=== PATIENT | female | born 1945 | race Caucasian/White ===

== ENCOUNTER 2023-03-16 10:08 | Day surgery (SDC) | payer MEDICARE, OTHER ==
[2023-03-09 16:26] LABS: BASOPHILS # (AUTO) 0.1 X10'3 (0-0.2); BASOPHILS % (AUTO) 0.7 % (0-1); EOSINOPHILS # (AUTO) 0.4 X10'3 (0-0.9); EOSINOPHILS % (AUTO) 4.7 % (0-6); LYMPHOCYTES # (AUTO) 1.2 X10'3 (1.1-4.8); LYMPHOCYTES % (AUTO) 15.8 % (21-51); MEAN CORPUSCULAR HGB CONC 32.3 g/dL (33.0-36.5); MEAN CORPUSCULAR VOLUME 83.6 FL (78-98); MEAN PLATELET VOLUME 7.4 FL (7.4-10.4); MONOCYTES # (AUTO) 0.5 X10'3 (0-0.9); MONOCYTES % (AUTO) 6.2 % (2-12); NEUTROPHILS # (AUTO) 5.5 X10'3 (1.8-7.7); NEUTROPHILS % (AUTO) 72.6 % (42-75); PRE OP HEMATOCRIT 36.3 % (35.0-45.0); PRE OP HEMOGLOBIN 11.7 g/dL (12.0-16.0); PRE OP PLATELET COUNT 255 X10'3 (140-440); RED BLOOD COUNT 4.35 X10'6 (4.20-5.60); RED CELL DISTRIBUTION WIDTH 18.3 % (11.5-14.5)
[2023-03-09 16:39] LABS: ALBUMIN 3.5 G/DL (3.4-5.0); ALBUMIN/GLOBULIN RATIO 1.2 (1.1-1.5); ALKALINE PHOSPHATASE 89 IU/L (46-116); BLOOD UREA NITROGEN 27 MG/DL (7-18); CALCIUM 8.9 MG/DL (8.5-10.1); CHLORIDE 105 MMOL/L (99-107); PRE OP ALT 17 U/L (30-65); PRE OP ANION GAP 9 (8-16); PRE OP AST 19 U/L (10-37); PRE OP BILIRUB, TOTAL 0.4 MG/DL (0.0-1.0); PRE OP GLUCOSE 110 MG/DL (70-104); PRE OP POTASSIUM 4.1 MMOL/L (3.4-5.1); PRE OP SODIUM 142 MMOL/L (135-145); TOTAL CARBON DIOXIDE 27.7 MMOL/L (24-32); TOTAL PROTEIN 6.5 G/DL (6.4-8.2); eGFR > 90 ML/MIN
[~2023-03-16] VITALS: Ht 157.5 cm; Wt 62.9 kg
[2023-03-16] VITALS (12 sets, daily range): BP systolic 109–140; BP diastolic 59–81
[~2023-03-16 10:08] MED LIST: AMLO2.5T2 PO; BENA10TA74 PO; CALC-336 PO; CHOL200013 PO; DORZ10DR26 OP; FENT1PAT12 TOP; GABA-530 PO; HYDR-3972 PO; LEVO75TA7 PO; MAGN250C PO; PANT-47 PO; PRE1T PO; SERT-433 PO; TIMO5DRO44 OP; [UNRECOGNIZED DRUG - OTHER]; cefazolin 2gm/D5W 100mL 100 ML IV ONE; famotidine 20mg tablet PO ONE; methylPREDNISolone sod succ 125mg/2ml vial IV ONE; ringers solution, lacted 1,000 ML IV SCH
[2023-03-16] MEDS ORDERED: LIDOcaine 1%/PF 5ML 10 MG/ML VIAL ONE (13:05)
[2023-03-16] MEDS ORDERED: propofol inj 20 ML IV ONE (13:05)
[2023-03-16] MEDS ORDERED: fentaNYL/PF 50MCG/1 ML 2ML syringe ONE (13:42)
[2023-03-16] MEDS ORDERED: meperidine/PF 50mg/ml syringe ONE (13:43)
[2023-03-16] MEDS ORDERED: midazolam 1 mg/ML 2ml injection ONE ×2 (13:43→15:41)
[2023-03-16] MEDS ORDERED: LIDOcaine 2% jelly 6ml syringe ***for topical use only ONE (13:51)
[2023-03-16] MEDS ORDERED: labetalol 20mg/4ml (5mg/ml) syringe IV ONE (14:39)
[2023-03-16] MEDS ORDERED: acetaminophen 1,000mg/100ml IV 100 ML IV ONE (14:40)
[2023-03-16] MEDS ORDERED: neostigmine methylsulfate 1 MG/ML 10ml vial ONE (14:49)
[2023-03-16] MEDS ORDERED: glycopyrrolate 0.2mg/ml inj ONE (14:49)
[2023-03-16] MEDS ORDERED: BUPIVAcaine/PF 2.5 mg/ml (0.25%) 30ml vial ONE (15:12)
[2023-03-16] MEDS ORDERED: LIDOcaine 1% 30ml preserv. free vial ONE (15:12)
[2023-03-16] MEDS ORDERED: BUPIVAcaine/PF 2.5 mg/ml (0.25%) 30ml vial IJ ONE (15:38)
[2023-03-16] MEDS ORDERED: LIDOcaine 1% 30ml preserv. free vial IJ ONE (15:38)
[2023-03-16] MEDS ORDERED: fentaNYL /PF 50mcg/ml 5ml ampule ONE (15:41)
[2023-03-16] MEDS ORDERED: sugammadex 200mg/2ml injection IV ONE (16:29)
--- NOTE | 2023-03-16 16:44 | NUR ---
Received from OR via HOSPITAL BED , accompanied by Anesthesiologist DR MARSHALL and report given by Anesthesiolgist. PT PRESENTS WITH PIV 20G RIGHT HAND, SPO2 100% 6L MASK, LR RUNNING AT 100MLS/HR, VSS. DR MCCLURE TALKING WITH PT REGARDING UNABLE TO DUE SURGERY DUE TO PT TELLING THE NURSE THAT SHE COLD NOT LAY FLAT OR SHE WOULD BE PARALYZED. CLARIFICATION NEEDED FOR DR MCCLURE TO BE ABLE TO DUE THE SURGERY. Addendum: 03/16/23 at 1701 by Riana Coleman RN, RN Amended: Links added.
--- NOTE | 2023-03-16 16:54 | NUR ---
NOTE ON THE FRONT OF THE CHART READS "PLEASE USE EXTREME CAUTION WITH POSITIONING, PT UNABLE TO LAY FLAT NEEDS KNEES SUPPORTED. FAILED FUSION & SEVERE DEGENERATIVE DISC DISEASE".
--- NOTE | 2023-03-16 18:14 | NUR ---
DC HOME: ALL DISCHARGE CRITERIA HAS BEEN MET. VSS, PAIN AT A TOLERABLE LEVEL, VOIDING AND ABLE TO SAFELY AMBULATE AND TRANSFER SELF. IV TAKEN OUT WITHOUT ANY COMPLICATIONS. ALL DISCHARGE INSTRUCTIONS COVERED WITH PATIENT AND ALL QUESTIONS ANSWERED. PATIENT TAKEN OUT VIA WHEELCHAIR TO PERSONAL VEHICLE WHERE FAMILY/FRIEND DROVE PATIENT HOME. SURGERY WILL NEED TO BE RESCHEDULED. DR MCCLURE WILL CALL PT TOMORROW AFTERNOON TO DISCUSS SURGICAL OPTIONS AND TIMONG. TO PROCEED WITH SURGERY PT WILL NEED TO BE LAYING COMPLETELY FLAT AFTER GENERAL ANESTHESIA MOREIRA STARTED. Addendum: 03/16/23 at 1926 by Riana Coleman RN, RN Amended: Links added.
== END 2023-03-16 18:14 | disposition home or self-care (01) ==
LOC: PAS 10:08
PROVIDERS: ATTEND Surgery
DX: K44.9 Diaphragmatic hernia without obstruction or gangrene (principal); Z53.8 Procedure and treatment not carried out for other reasons; I10 Essential (primary) hypertension; H40.9 Unspecified glaucoma; K21.9 Gastro-esophageal reflux disease without esophagitis; G89.29 Other chronic pain; E03.9 Hypothyroidism, unspecified; M46.20 Osteomyelitis of vertebra, site unspecified; F32.A Depression, unspecified; F41.9 Anxiety disorder, unspecified; Z90.710 Acquired absence of both cervix and uterus; Z98.890 Other specified postprocedural states; Z98.1 Arthrodesis status; Z91.040 Latex allergy status; Z88.2 Allergy status to sulfonamides; Z79.899 Other long term (current) drug therapy; Z72.89 Other problems related to lifestyle; Z79.52 Long term (current) use of systemic steroids; Z80.0 Family history of malignant neoplasm of digestive organs; Z82.49 Family history of ischemic heart disease and other diseases of the circulatory system; Z82.61 Family history of arthritis
CPT/HCPCS: 36415; 43281; 80053; 82948; 85025; 87081; 93005; J0131; J0690; J2175; J2250; J2704; J2710; J3010; J3490; J7030; J7120; Z7506; Z7508; Z7512; A4615; A4618

== ENCOUNTER 2023-03-20 12:55 | Inpatient (IN) | payer MEDICARE, OTHER ==
[~2023-03-20] VITALS: Ht 154.9 cm; Wt 81.6 kg
[~2023-03-20 12:55] MED LIST changes: -cefazolin 2gm/D5W 100mL 100 ML IV ONE; -famotidine 20mg tablet PO ONE; -methylPREDNISolone sod succ 125mg/2ml vial IV ONE; -ringers solution, lacted 1,000 ML IV SCH
[2023-03-20 13:38] LABS: BASOPHILS # (AUTO) 0.1 X10'3 (0-0.2); BASOPHILS % (AUTO) 0.5 % (0-1); EOSINOPHILS # (AUTO) 0.1 X10'3 (0-0.9); EOSINOPHILS % (AUTO) 0.6 % (0-6); HEMOGLOBIN 12.2 g/dl (12.0-16.0); LYMPHOCYTES # (AUTO) 1.2 X10'3 (1.1-4.8); LYMPHOCYTES % (AUTO) 8.9 % (21-51); MEAN CORPUSCULAR HEMOGLOBIN 26.9 PG (27.0-31.0); MEAN PLATELET VOLUME 7.3 FL (7.4-10.4); MONOCYTES # (AUTO) 0.7 X10'3 (0-0.9); MONOCYTES % (AUTO) 5.4 % (2-12); NEUTROPHILS # (AUTO) 11.7 X10'3 (1.8-7.7); NEUTROPHILS % (AUTO) 84.6 % (42-75); PLATELET COUNT 252 X10'3 (140-440); RED BLOOD COUNT 4.53 X10'6 (4.20-5.60); RED CELL DISTRIBUTION WIDTH 18.2 % (11.5-14.5); WHITE BLOOD COUNT 13.8 X10'3 (4.5-11.0)
[2023-03-20 13:52] LABS: ALANINE AMINOTRANSFERASE 17 U/L (12-78); ALBUMIN 3.6 G/DL (3.4-5.0); ALBUMIN/GLOBULIN RATIO 1.1 (1.1-1.5); ALKALINE PHOSPHATASE 89 IU/L (46-116); ANION GAP 8 (8-16); ASPARTATE AMINO TRANSFERASE 20 U/L (10-37); BLOOD UREA NITROGEN 26 MG/DL (7-18); BUN/CREATININE RATIO 42.6 (10.0-20.0); CHLORIDE 102 MMOL/L (99-107); CREATININE 0.61 MG/DL (0.40-0.90); GLUCOSE 114 MG/DL (70-104); LIPASE < 50 U/L (73-393); POTASSIUM 3.8 MMOL/L (3.5-5.1); SODIUM 139 MMOL/L (135-145); TOTAL PROTEIN 6.8 G/DL (6.4-8.2); eGFR > 90 ML/MIN
[2023-03-20 13:58] LABS: CLARITY,URINE SLIGHTLY CLOUDY (Clear); COLOR,URINE YELLOW (Yellow); GLUCOSE, URINE NEGATIVE (Neg); KETONES,URINE TRACE mg/dl (Neg); LEUKOCYTE ESTERASE ,URINE NEGATIVE (Neg); NITRITES, URINE NEGATIVE (Neg); OCCULT BLOOD,URINE NEGATIVE (Neg); PROTEIN,URINE NEGATIVE (Neg)
[2023-03-20 14:07] LABS: UA COLLECTION TYPE CLN CATCH MIDSTREAM
[2023-03-20 14:09] LABS: BACTERIA,URINE FEW /HPF (Neg); RBC,URINE NONE SEEN /HPF (0-2); SQUAMOUS EPITHELIAL CELL,UR MANY /LPF (FEW); TRANSITIONAL EPI CELLS,URINE FEW /HPF; WBC,URINE 0-4 /HPF (0-4)
[2023-03-20] MEDS ORDERED: normal saline 1000ml 1,000 ML IV ONE (14:50)
[2023-03-20] MEDS ORDERED: iohexol 350MG/ML 100ml bottle IV ONE (15:01)
[2023-03-20 18:11] LABS: BASOPHILS % (AUTO) 0.3 % (0-1); EOSINOPHILS # (AUTO) 0.1 X10'3 (0-0.9); EOSINOPHILS % (AUTO) 0.7 % (0-6); HEMATOCRIT 31.2 % (35.0-45.0); HEMOGLOBIN 10.1 g/dl (12.0-16.0); LYMPHOCYTES # (AUTO) 1.1 X10'3 (1.1-4.8); LYMPHOCYTES % (AUTO) 8.3 % (21-51); MEAN CORPUSCULAR HEMOGLOBIN 27.1 PG (27.0-31.0); MEAN CORPUSCULAR HGB CONC 32.5 g/dL (33.0-36.5); MEAN CORPUSCULAR VOLUME 83.3 FL (78-98); MEAN PLATELET VOLUME 7.5 FL (7.4-10.4); MONOCYTES # (AUTO) 0.6 X10'3 (0-0.9); MONOCYTES % (AUTO) 4.6 % (2-12); NEUTROPHILS # (AUTO) 11.2 X10'3 (1.8-7.7); NEUTROPHILS % (AUTO) 86.1 % (42-75); PLATELET COUNT 210 X10'3 (140-440); RED BLOOD COUNT 3.75 X10'6 (4.20-5.60); RED CELL DISTRIBUTION WIDTH 17.7 % (11.5-14.5)
[2023-03-20] MEDS ORDERED: piperacillin/tazo 3.375gm/50ml 50 ML IV ONE (18:30)
--- NOTE | 2023-03-20 18:38 | NUR ---
assumed care form van freeman
[2023-03-20] MEDS ORDERED: ondansetron/PF 4mg/2ml inj IV ONE (18:40)
[2023-03-20] MEDS ORDERED: morphine 4 MG/ML inj SYRINge IV ONE (18:40)
[2023-03-20 19:14] LABS: APTT 29 SECONDS (22-32)
[2023-03-20] MEDS ORDERED: DORZ10DR32 EACHEYE (20:12)
[2023-03-20] MEDS ORDERED: TIMO5DRO44 EACHEYE (20:12)
[2023-03-20] MEDS ORDERED: CYAN500T53 (20:12)
[2023-03-20] MEDS ORDERED: acetaminophen 325mg tablet PO PRN ×2 (20:15)
[2023-03-20] MEDS ORDERED: HYDROcodone/acetaminophen 10/325mg tab PO PRN (20:15)
[2023-03-20] MEDS ORDERED: diphenhydrAMINE 50 mg/ml inj IV PRN (20:15)
[2023-03-20] MEDS ORDERED: morphine 2 MG/ML inj. syringe IV PRN (20:15)
[2023-03-20] MEDS ORDERED: acetaminophen 650mg rectal suppository RC PRN (20:15)
[2023-03-20] MEDS ORDERED: mag hydrox/Alum hydrox/simeth 30ml oral suspension PO PRN (20:15)
[2023-03-20] MEDS ORDERED: diphenhydrAMINE 25mg capsule PO PRN (20:15)
[2023-03-20] MEDS ORDERED: bisacodyl 10mg suppository rectal RC PRN (20:15)
[2023-03-20] MEDS ORDERED: HYDROcodone/acetaminophen 5mg/325mg tablet PO PRN (20:15)
[2023-03-20] MEDS ORDERED: ondansetron 4mg rapidly disintigrating tab PO PRN (20:15)
[2023-03-20] MEDS ORDERED: magnesium hydroxide 30ml (MOM) UD suspension PO PRN (20:15)
[2023-03-20] MEDS ORDERED: tranexamic acid inj. 1,000 MG in normal saline 100ml IV soln 90 ML IV ONE ×2 (20:20→20:45)
[2023-03-20 20:46] LABS: HEMOGLOBIN A1C 6.2 % (4.5-6.2)
[2023-03-20 20:59] LABS: CREATINE KINASE 33 U/L (26-192); PHOSPHORUS 3.7 MG/DL (2.3-4.5)
[2023-03-20] MEDS ORDERED: pantoprazole 40MG/NS 100ML BAG 100 ML IV SCH ×2 (21:00)
[2023-03-20] MEDS ORDERED: temazepam 15mg capsule PO PRN (21:00)
[2023-03-20] MEDS: diatr meglu/diatrizoate 30ml oral sol.-(3 dose) bottle PO SCH (21:08)
[2023-03-20] MEDS: pantoprazole 40MG/NS 100ML BAG 100 ML IV SCH (21:08)
[2023-03-20] MEDS: normal saline 1000ml 1,000 ML IV SCH (21:10)
[2023-03-20] MEDS: ondansetron/PF 4mg/2ml inj IV PRN (22:33)
[2023-03-20] MEDS: morphine 2 MG/ML inj. syringe IV PRN (22:33)
[2023-03-20 23:40] VITALS: BP 99/52
[2023-03-21] MEDS: pantoprazole 40MG/NS 100ML BAG 100 ML IV SCH ×4 (01:05→15:57)
[2023-03-21] MEDS: normal saline 1000ml 1,000 ML IV SCH ×2 (01:05→12:17)
[2023-03-21 06:00] VITALS: BP 85/49
[2023-03-21 06:07] LABS: BASOPHILS % (AUTO) 0.1 % (0-1); EOSINOPHILS # (AUTO) 0.2 X10'3 (0-0.9); EOSINOPHILS % (AUTO) 1.4 % (0-6); HEMATOCRIT 32.6 % (35.0-45.0); HEMOGLOBIN 10.3 g/dl (12.0-16.0); LYMPHOCYTES # (AUTO) 0.8 X10'3 (1.1-4.8); LYMPHOCYTES % (AUTO) 5.2 % (21-51); MEAN CORPUSCULAR HEMOGLOBIN 26.6 PG (27.0-31.0); MEAN CORPUSCULAR HGB CONC 31.5 g/dL (33.0-36.5); MEAN CORPUSCULAR VOLUME 84.6 FL (78-98); MEAN PLATELET VOLUME 7.6 FL (7.4-10.4); MONOCYTES # (AUTO) 0.9 X10'3 (0-0.9); MONOCYTES % (AUTO) 5.8 % (2-12); NEUTROPHILS # (AUTO) 13.5 X10'3 (1.8-7.7); NEUTROPHILS % (AUTO) 87.5 % (42-75); PLATELET COUNT 195 X10'3 (140-440); RED BLOOD COUNT 3.86 X10'6 (4.20-5.60); WHITE BLOOD COUNT 15.4 X10'3 (4.5-11.0)
[2023-03-21 06:16] LABS: ALANINE AMINOTRANSFERASE 11 U/L (12-78); ALBUMIN 2.7 G/DL (3.4-5.0); ALKALINE PHOSPHATASE 71 IU/L (46-116); ANION GAP 9 (8-16); ASPARTATE AMINO TRANSFERASE 19 U/L (10-37); BILIRUBIN,TOTAL 0.9 MG/DL (0.1-1.0); BLOOD UREA NITROGEN 22 MG/DL (7-18); BUN/CREATININE RATIO 29.7 (10.0-20.0); CALCIUM 8.1 MG/DL (8.5-10.1); CHLORIDE 105 MMOL/L (99-107); CHOL/HDL RATIO 2.3 (0.00-4.99); CHOLESTEROL 133 MG/DL (0-200); CREATININE 0.74 MG/DL (0.40-0.90); GLUCOSE 76 MG/DL (70-104); HDL CHOLESTEROL 59 MG/DL (35-60); LDL CHOLESTEROL 66 MG/DL (50-100); POTASSIUM 3.3 MMOL/L (3.5-5.1); SODIUM 138 MMOL/L (135-145); TOTAL CARBON DIOXIDE 23.7 MMOL/L (24-32); TOTAL PROTEIN 5.4 G/DL (6.4-8.2); TRIGLYCERIDES 37 MG/DL (20-135); eGFR 76 ML/MIN
--- NOTE | 2023-03-21 06:53 | NUR ---
Patient in room PCU 3026. I have received report from Lyn RENTERIA and had the opportunity to ask questions and assume patient care.
[2023-03-21] MEDS: diatr meglu/diatrizoate 30ml oral sol.-(3 dose) bottle PO SCH ×2 (07:35→09:37)
[2023-03-21] MEDS: morphine 2 MG/ML inj. syringe IV PRN (07:47)
[2023-03-21] MEDS ORDERED: piperacillin/tazo 4.5gm/100ml 100 ML IV SCH (08:00)
[2023-03-21] MEDS ORDERED: docusate sod 100mg capsule PO SCH (08:00)
[2023-03-21] MEDS ORDERED: magnesium 2GM in 50ml NS 50 ML IV PRN (08:00)
[2023-03-21] MEDS ORDERED: potassium Cl 20 mEq SR tablet PO PRN ×2 (08:00)
[2023-03-21] MEDS ORDERED: magnesium Cl slow-release 64mg tablet PO PRN (08:00)
[2023-03-21] MEDS ORDERED: magnesium 4gm in 100ml NS 100 ML IV PRN (08:00)
[2023-03-21 10:00] VITALS: BP 93/36
[2023-03-21] MEDS ORDERED: FENTANYL TOP SCH (11:35)
[2023-03-21] MEDS ORDERED: methylPREDNISolone sod succ/PF 40mg inj. IV ONE (11:40)
[2023-03-21] MEDS ORDERED: PEG 3350/Na sulf,bicarb,Cl/KCl oral sol 4 liter bottle PO ONE (12:10)
[2023-03-21] MEDS: potassium Cl 40MEQ/1/2NS 520ml 520 ML IV PRN (12:20)
--- NOTE | 2023-03-21 14:52 | NUR ---
patient was seen by DR Leung and Miranda Summers . Dr Leung sated that he wants an evaluation of current CT by radiologist. Bowel prep on hold Patient ambulated with PT see note. B/P 93/36. 105/44.
[2023-03-21 15:54] VITALS: BP 93/36
[2023-03-21] MEDS ORDERED: dextrose 50%-water 50ml dispensing syringe IV ONE (16:15)
--- NOTE | 2023-03-21 16:53 | NUR ---
patient prepared for surgery fentanyl patch removed and wasted with kenna RENTERIA
--- NOTE | 2023-03-21 18:21 | NUR ---
patient medicated for pain with good result. Ambulated with PT see note with regards O2 sat was reported that patient dropped in the 70"s when ambulating with Sarah from PT. Report given to Nickie RENTERIA
--- NOTE | 2023-03-21 18:39 | NUR ---
Report given to Lyn RENTERIA
[2023-03-21 19:19] VITALS: BP 128/61
[2023-03-21] MEDS: dorzolamide 2% ophthalmic drops 10ml EACHEYE SCH (20:00)
--- NOTE | 2023-03-21 21:00 | NUR ---
Family came up to take all Pt's belongings with them.
[2023-03-21] MEDS ORDERED: midazolam 1 mg/ML 2ml injection ONE (22:25)
[2023-03-21] MEDS ORDERED: sevoflurane 250ml liquid IH ONE (22:31)
[2023-03-21] MEDS ORDERED: rocuronium 10mg/ml inj IV ONE ×2 (22:31→23:26)
--- NOTE | 2023-03-21 22:47 | NUR ---
Pt went to OR at 1915, At 2245 PCU charge nurse informed that Pt is going to ICU after procedure.
[2023-03-21] MEDS ORDERED: LIDOcaine 1% 30ml preserv. free vial ONE (23:18)
[2023-03-21] MEDS ORDERED: BUPIVAcaine/PF 2.5 mg/ml (0.25%) 30ml vial ONE (23:18)
[2023-03-21] MEDS ORDERED: midazolam 1 mg/ML 2ml injection IV PRN (23:20)
[2023-03-21] MEDS ORDERED: propofol 1000mg/100ml bottle 100 ML IV SCH (23:20)
[2023-03-21] MEDS ORDERED: fentaNYL /PF 50mcg/ml 5ml ampule ONE (23:25)
[2023-03-21] MEDS ORDERED: 0.9 % SODIUM CHLORIDE 10 ML VIAL ONE (23:26)
[2023-03-21] MEDS ORDERED: ceFOXitin 1000 MG inj ONE ×2 (23:26)
[2023-03-21] MEDS ORDERED: LIDOcaine 1% (10mg/ml) 2ml vial ONE (23:26)
[2023-03-21] MEDS ORDERED: ePHEDrine 50MG/ML INJ. ONE (23:26)
[2023-03-21] MEDS ORDERED: dexamethasone sod phosphate 4mg/ml inj. ONE (23:26)
[2023-03-21] MEDS ORDERED: LIDOcaine 2% (20mg/ml) 5ml vial ONE (23:26)
[2023-03-21] MEDS ORDERED: ondansetron/PF 4mg/2ml inj ONE (23:26)
[2023-03-21] MEDS ORDERED: propofol inj 20 ML IV ONE (23:26)
[2023-03-22] VITALS (29 sets, daily range): BP systolic 119–180; BP diastolic 50–87
[2023-03-22] MEDS ORDERED: BUPIVACAINE liposomal/PF 13.3 MG/ML vial IM ONE (00:16)
[2023-03-22] MEDS ORDERED: BUPIVAcaine/PF 2.5 mg/ml (0.25%) 30ml vial ONE (00:17)
[2023-03-22] MEDS: pantoprazole 40MG/NS 100ML BAG 100 ML IV SCH ×4 (01:00→12:32)
[2023-03-22] MEDS ORDERED: morphine 10mg/ml inj. ONE (01:08)
[2023-03-22] MEDS ORDERED: naloxone 0.4 mg/ml inj IV PRN (01:15)
[2023-03-22] MEDS: fentaNYL/PF 50MCG/1 ML 2ML syringe IV PRN ×4 (01:33→01:51)
--- NOTE | 2023-03-22 01:35 | NUR ---
Received from OR via , accompanied by Anesthesiologist and report given by Anesthesiolgist. PATIENT SEDATED RT HERE, XRAY PAGED, HTN STABLE V/S, SEE RT NOTES FOR VENT SETTING, ET TUBE 21CM TEETH, 20G RUE 22G LUE CL RIGHT IJ ART LINE RUE, ISLAND DRESSING CDI COLOSTOMY WITH PINK STOMA CDI, ADITYA DRAIN SCANT OUT PUT TO ABDOMEN CDI DRESSING, F/C DRAINING CLEAR YELLOW URINE. SCD ON. DIPROVAN FOR SEDATION. PAIN MEDS TO BE GIVEN FOR PAIN AND HTN SEE EMAR.
--- NOTE | 2023-03-22 02:05 | NUR ---
PATIENT RECOVERED IN ICU, CONDITION UNCHANGED EXCEPT B/P TRENDING DOWN, MEDS GIVEN FOR PAIN SEE EMAR, MILD SHADOWING TO ISLAND DRESSING TO ABDOMEN OTHERWISE CDI ADITYA SCANT OUT PUT COLOSTOMY CDI PINK STOMA, F/C DRAINING CLEAR YELLOW URINE. REPORT GIVEN TO FULL FASHIONED GARMENT KNITTER WHO HAS TAKEN OVER PATIENT CARE.
[2023-03-22 02:06] LABS: ABG BASE EXCESS -8.5 mmol/L (-2.0-2.0); ABG HCO3 16.2 mmol/L (22.0-26.0); ABG OXYGEN SATURATION 99.6 % (94-97); ABG PCO2 (T) 29.9 mmHg (32.0-45.0); ABG PO2 (T) 316.8 mmHg (75.0-100.0); FCOHb 0.5 % (0.0-3.9); FMetHb 0.5 % (0.0-1.5); FO2Hb 98.6 % (94-97); PATIENT TEMPERATURE 35.9; PEEP 5 cm H2O; RESPIRATORY RATE 12 b/min; TIDAL VOLUME 500 mL; TOTAL HEMOGLOBIN 13.1 G/dl (12.0-16.0)
[2023-03-22] MEDS: normal saline 1000ml 1,000 ML IV SCH ×3 (02:52→23:03)
[2023-03-22] MEDS ORDERED: piperacillin/tazo 4.5gm/100ml 100 ML IV SCH (02:55)
[2023-03-22] MEDS ORDERED: SODIUM BICARB 150mEq/D5W 1L 1,000 ML IV ONE (03:00)
[2023-03-22] MEDS ORDERED: VANCOMYCIN 1,500MG in normal saline IV soln 300 ML IV ONE (03:00)
[2023-03-22] MEDS: labetalol 20mg/4ml (5mg/ml) syringe IV PRN ×2 (03:04→06:30)
[2023-03-22 03:53] LABS: BASOPHILS # (AUTO) 0.1 X10'3 (0-0.2); BASOPHILS % (AUTO) 0.4 % (0-1); EOSINOPHILS % (AUTO) 0 % (0-6); HEMATOCRIT 38.5 % (35.0-45.0); HEMOGLOBIN 12.1 g/dl (12.0-16.0); LYMPHOCYTES # (AUTO) 0.3 X10'3 (1.1-4.8); LYMPHOCYTES % (AUTO) 1.7 % (21-51); MEAN CORPUSCULAR HEMOGLOBIN 26.9 PG (27.0-31.0); MEAN CORPUSCULAR HGB CONC 31.5 g/dL (33.0-36.5); MEAN CORPUSCULAR VOLUME 85.3 FL (78-98); MEAN PLATELET VOLUME 8.1 FL (7.4-10.4); MONOCYTES # (AUTO) 0.7 X10'3 (0-0.9); MONOCYTES % (AUTO) 3.9 % (2-12); PLATELET COUNT 230 X10'3 (140-440); RED BLOOD COUNT 4.52 X10'6 (4.20-5.60)
[2023-03-22 04:12] LABS: ALANINE AMINOTRANSFERASE 14 U/L (12-78); ALBUMIN 2.7 G/DL (3.4-5.0); ALBUMIN/GLOBULIN RATIO 0.9 (1.1-1.5); ALKALINE PHOSPHATASE 94 IU/L (46-116); ANION GAP 17 (8-16); ASPARTATE AMINO TRANSFERASE 18 U/L (10-37); BILIRUBIN,TOTAL 0.8 MG/DL (0.1-1.0); BLOOD UREA NITROGEN 18 MG/DL (7-18); BUN/CREATININE RATIO 29.5 (10.0-20.0); CALCIUM 8.4 MG/DL (8.5-10.1); CHLORIDE 105 MMOL/L (99-107); CREATININE 0.61 MG/DL (0.40-0.90); GLUCOSE 160 MG/DL (70-104); POTASSIUM 3.7 MMOL/L (3.5-5.1); SODIUM 140 MMOL/L (135-145); TOTAL PROTEIN 5.8 G/DL (6.4-8.2); TRIGLYCERIDES 65 MG/DL (20-135); eGFR > 90 ML/MIN
--- NOTE | 2023-03-22 06:15 | NUR ---
Problems reprioritized. Patient report given, questions answered & plan of care reviewed with DEXTER Nelson.
[2023-03-22] MEDS: HYDROmorphone inj. 0.5 MG/0.5 ML DISP.SYRIN IV PRN ×3 (06:20→20:56)
[2023-03-22] MEDS: heparin, porcine 5000 units/ml vial SQ SCH ×2 (08:00→20:57)
[2023-03-22] MEDS: levoTHYROXINE 75mcg tablet PO SCH (08:00)
[2023-03-22] MEDS: dorzolamide 2% ophthalmic drops 10ml EACHEYE SCH ×2 (08:00→20:58)
[2023-03-22] MEDS: timolol 0.5% ophthalmic solution 5ml bottle EACHEYE SCH (08:00)
[2023-03-22] MEDS: morphine 2 MG/ML inj. syringe IV PRN ×2 (09:25→16:28)
[2023-03-22] MEDS ORDERED: labetalol 20mg/4ml (5mg/ml) syringe IV PRN (10:20)
[2023-03-22] MEDS: hydrALAZINE 20mg/ml inj. IV SCH ×3 (11:35→20:57)
[2023-03-22] MEDS: piperacillin/tazo 4.5gm/100ml 100 ML IV SCH ×2 (11:35→19:28)
[2023-03-22] MEDS: SODIUM BICARBONATE 150MEQ IN D5W 1,000 ML IV SCH ×2 (12:30→23:03)
[2023-03-22] MEDS: ondansetron/PF 4mg/2ml inj IV PRN (15:43)
--- NOTE | 2023-03-22 18:00 | NUR ---
Patient in room ICU 2039. I have received report from Anil RENTERIA and had the opportunity to ask questions and assume patient care.
[2023-03-22] MEDS: fentaNYL 75 MCG/hour patch.TD72 TD SCH (23:00)
[2023-03-23] VITALS (17 sets, daily range): BP systolic 98–133; BP diastolic 45–64
[2023-03-23] MEDS: hydrALAZINE 20mg/ml inj. IV SCH ×6 (00:41→20:46)
[2023-03-23] MEDS: ondansetron/PF 4mg/2ml inj IV PRN ×2 (01:35→13:07)
[2023-03-23] MEDS: morphine 2 MG/ML inj. syringe IV PRN (01:36)
[2023-03-23] MEDS ORDERED: mineral oil/petrolatum ophthal oint EACHEYE SCH (02:00)
[2023-03-23 03:03] LABS: BASOPHILS % (AUTO) 0.2 % (0-1); EOSINOPHILS # (AUTO) 0.1 X10'3 (0-0.9); EOSINOPHILS % (AUTO) 0.5 % (0-6); HEMATOCRIT 32.9 % (35.0-45.0); HEMOGLOBIN 10.8 g/dl (12.0-16.0); LYMPHOCYTES # (AUTO) 0.7 X10'3 (1.1-4.8); LYMPHOCYTES % (AUTO) 4.4 % (21-51); MEAN CORPUSCULAR HEMOGLOBIN 27.3 PG (27.0-31.0); MEAN CORPUSCULAR HGB CONC 32.9 g/dL (33.0-36.5); MEAN CORPUSCULAR VOLUME 82.9 FL (78-98); MEAN PLATELET VOLUME 7.7 FL (7.4-10.4); MONOCYTES % (AUTO) 6.8 % (2-12); NEUTROPHILS # (AUTO) 13.3 X10'3 (1.8-7.7); NEUTROPHILS % (AUTO) 88.1 % (42-75); PLATELET COUNT 231 X10'3 (140-440); RED BLOOD COUNT 3.96 X10'6 (4.20-5.60); RED CELL DISTRIBUTION WIDTH 17.9 % (11.5-14.5); WHITE BLOOD COUNT 15.1 X10'3 (4.5-11.0)
[2023-03-23] MEDS: piperacillin/tazo 4.5gm/100ml 100 ML IV SCH ×3 (03:17→20:29)
[2023-03-23 03:18] LABS: ALANINE AMINOTRANSFERASE 16 U/L (12-78); ALBUMIN 1.9 G/DL (3.4-5.0); ALBUMIN/GLOBULIN RATIO 0.6 (1.1-1.5); ALKALINE PHOSPHATASE 69 IU/L (46-116); ANION GAP 2 (8-16); ASPARTATE AMINO TRANSFERASE 12 U/L (10-37); BILIRUBIN,TOTAL 0.5 MG/DL (0.1-1.0); BLOOD UREA NITROGEN 10 MG/DL (7-18); BUN/CREATININE RATIO 20.4 (10.0-20.0); CALCIUM 7.7 MG/DL (8.5-10.1); CHLORIDE 105 MMOL/L (99-107); CREATININE 0.49 MG/DL (0.40-0.90); GLUCOSE 152 MG/DL (70-104); POTASSIUM 3.1 MMOL/L (3.5-5.1); SODIUM 141 MMOL/L (135-145); TOTAL CARBON DIOXIDE 34.2 MMOL/L (24-32); TOTAL PROTEIN 5.2 G/DL (6.4-8.2); eGFR > 90 ML/MIN
[2023-03-23 03:36] LABS: ANISOCYTOSIS 1+; PLATELET ESTIMATE NORMAL
[2023-03-23 03:37] LABS: ELLIPTOCYTES FEW; POIKILOCYTOSIS FEW
--- NOTE | 2023-03-23 04:00 | NUR ---
discontinued the art line, applied pressure for 5 minutes, no bleeding present, and pt tolerated well.
[2023-03-23] MEDS: vancomycin/NS 1 GM ADD-VANTAGE 250 ML IV SCH (04:20)
[2023-03-23] MEDS: HYDROmorphone inj. 0.5 MG/0.5 ML DISP.SYRIN IV PRN ×3 (05:37→20:47)
[2023-03-23] MEDS: potassium Cl 40MEQ/1/2NS 520ml 520 ML IV PRN (05:37)
[2023-03-23] MEDS: levoTHYROXINE 75mcg tablet PO SCH (07:33)
[2023-03-23] MEDS: dorzolamide 2% ophthalmic drops 10ml EACHEYE SCH ×2 (08:08→20:30)
[2023-03-23] MEDS: pantoprazole 40MG/NS 100ML BAG 100 ML IV SCH (08:08)
[2023-03-23] MEDS: heparin, porcine 5000 units/ml vial SQ SCH ×2 (08:08→20:45)
[2023-03-23] MEDS: timolol 0.5% ophthalmic solution 5ml bottle EACHEYE SCH (08:08)
[2023-03-23] MEDS: normal saline 1000ml 1,000 ML IV SCH ×2 (08:15→16:21)
--- NOTE | 2023-03-23 14:00 | NUR ---
Pt arrived to unit via bed from icu. monitoring and evaluation advisor applied, suction set up to ng tube. head to toe assessment performed. obtained vital signs. all stable. pt is experiencing abdominal pain, s/p ex lap with colectomy on 03/20. extubated on 03/22. 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 medicated for pain per md order. repositioned for comfort. changed rogelio drain dressing and emptied rogelio drain. 70 ml. pt has weber with clear yellow urine draining to gravity. arrived from icu with fentanyl patch on right shoulder. potassium was replaced in icu. normal saline at 100 infusing into a 20g on left ac. pt is on 4L oxygen nasal cannula. pt is experiencing nausea. icu gave zofran which did not help. paged Dr. Miner for a compazine order. pt is npo. awaiting for gas to appear in colostomy bag. positive bowel sounds. will continue to monitor.
--- NOTE | 2023-03-23 16:28 | NUR ---
sent to [facility]: [id number] [place]: bk not working. pt has nausea. order for compazine please jabari. thank you.
--- NOTE | 2023-03-23 17:26 | NUR ---
sent to [facility] [id number] [place]: still waiting for compazine order please. thank you.
[2023-03-23] MEDS: proCHLORperazine 10 MG/2 ml inj IV PRN (18:00)
--- NOTE | 2023-03-23 21:00 | NUR ---
Pt. is awake alert oriented in good spirits visitor at bedside. Pt. requesting pain med. Abd ADITYA drain intact, mod amt serosang drainage. Colostomy bag with small amt of serosang drainage. Pt. has an NGT to LIS small amt of greenish drainage, and weber cath with mod amt anna clear urine. Pt. has 2 peripheral IV/SL NS infusing. Oral care provided. Medicated for pain time 2 over night.
[2023-03-24] MEDS: proCHLORperazine 10 MG/2 ml inj IV PRN ×2 (02:40→19:07)
[2023-03-24] MEDS: HYDROmorphone inj. 0.5 MG/0.5 ML DISP.SYRIN IV PRN ×4 (02:41→22:55)
[2023-03-24] MEDS: piperacillin/tazo 4.5gm/100ml 100 ML IV SCH ×3 (02:46→22:54)
[2023-03-24 03:00] VITALS: BP 128/61
[2023-03-24] MEDS: hydrALAZINE 20mg/ml inj. IV SCH ×6 (04:00→19:20)
[2023-03-24] MEDS: normal saline 1000ml 1,000 ML IV SCH ×2 (04:15→14:15)
[2023-03-24 06:00] VITALS: BP 141/65
[2023-03-24] MEDS: pantoprazole 40MG/NS 100ML BAG 100 ML IV SCH (07:43)
[2023-03-24] MEDS: heparin, porcine 5000 units/ml vial SQ SCH ×2 (07:51→22:54)
[2023-03-24] MEDS: levoTHYROXINE 75mcg tablet PO SCH (08:00)
[2023-03-24] MEDS: dorzolamide 2% ophthalmic drops 10ml EACHEYE SCH ×2 (08:04→19:20)
[2023-03-24] MEDS: timolol 0.5% ophthalmic solution 5ml bottle EACHEYE SCH (08:04)
[2023-03-24] MEDS: vancomycin/NS 1 GM ADD-VANTAGE 250 ML IV SCH (08:22)
[2023-03-24 08:56] LABS: BASOPHILS % (AUTO) 0.3 % (0-1); EOSINOPHILS # (AUTO) 0.4 X10'3 (0-0.9); EOSINOPHILS % (AUTO) 4.4 % (0-6); HEMATOCRIT 30.2 % (35.0-45.0); HEMOGLOBIN 9.9 g/dl (12.0-16.0); LYMPHOCYTES # (AUTO) 0.5 X10'3 (1.1-4.8); LYMPHOCYTES % (AUTO) 4.9 % (21-51); MEAN CORPUSCULAR HEMOGLOBIN 27.8 PG (27.0-31.0); MEAN CORPUSCULAR HGB CONC 32.8 g/dL (33.0-36.5); MEAN CORPUSCULAR VOLUME 84.8 FL (78-98); MEAN PLATELET VOLUME 7.7 FL (7.4-10.4); MONOCYTES # (AUTO) 0.8 X10'3 (0-0.9); MONOCYTES % (AUTO) 7.8 % (2-12); NEUTROPHILS # (AUTO) 8.4 X10'3 (1.8-7.7); NEUTROPHILS % (AUTO) 82.6 % (42-75); PLATELET COUNT 215 X10'3 (140-440); RED BLOOD COUNT 3.56 X10'6 (4.20-5.60); RED CELL DISTRIBUTION WIDTH 17.9 % (11.5-14.5); WHITE BLOOD COUNT 10.2 X10'3 (4.5-11.0)
[2023-03-24 09:01] LABS: ALANINE AMINOTRANSFERASE 20 U/L (12-78); ALBUMIN 1.8 G/DL (3.4-5.0); ALBUMIN/GLOBULIN RATIO 0.6 (1.1-1.5); ALKALINE PHOSPHATASE 66 IU/L (46-116); ANION GAP 3 (8-16); ASPARTATE AMINO TRANSFERASE 17 U/L (10-37); BILIRUBIN,TOTAL 0.5 MG/DL (0.1-1.0); BLOOD UREA NITROGEN 10 MG/DL (7-18); BUN/CREATININE RATIO 25.6 (10.0-20.0); CALCIUM 8.1 MG/DL (8.5-10.1); CHLORIDE 106 MMOL/L (99-107); CREATININE 0.39 MG/DL (0.40-0.90); GLUCOSE 90 MG/DL (70-104); POTASSIUM 3.3 MMOL/L (3.5-5.1); SODIUM 141 MMOL/L (135-145); TOTAL CARBON DIOXIDE 31.8 MMOL/L (24-32); TOTAL PROTEIN 4.7 G/DL (6.4-8.2); eGFR > 90 ML/MIN
[2023-03-24 11:00] VITALS: BP 127/55
[2023-03-24] MEDS ORDERED: magnesium 4gm in 100ml NS 100 ML IV PRN (13:20)
[2023-03-24] MEDS ORDERED: magnesium 2GM in 50ml NS 50 ML IV PRN (13:20)
[2023-03-24] MEDS ORDERED: magnesium Cl slow-release 64mg tablet PO PRN (13:20)
[2023-03-24] MEDS ORDERED: potassium Cl 20 mEq SR tablet PO PRN ×2 (13:20)
[2023-03-24 18:00] VITALS: BP 139/57
--- NOTE | 2023-03-24 18:39 | NUR ---
Problems reprioritized. Patient report given, questions answered & plan of care reviewed with Loren RN, patient stable at transfer of care.
[2023-03-24] MEDS: metoclopramide 5 mg/ml inj IV SCH (19:21)
[2023-03-24] MEDS: K and/or MAG REPLACEMENT MC SCH (20:00)
[2023-03-24] MEDS: potassium Cl 40MEQ/1/2NS 520ml 520 ML IV PRN (21:17)
[2023-03-24 22:00] VITALS: BP 138/63
--- NOTE | 2023-03-25 | NUR ---
Pt. is awake alert oriented in good spirits had visitor at bedside today. Pt. still c/o abd pain. Abd dressing mod soiled with serosang drainage, All Staple sutures intact. Left side Colostomy bag intact small of serosang drainage small amt of leakage noted. Right side ADITYA drain with mod amt serosang drainage. NGT to LIS hypoactive Bowel sounds. Peripheral IV intact NS infusing. New peripheral IV placed. Takes po ice chips. Potassium infusing started for K+ level 3.4. 0400 Checked Vanco level 5.9. K+ level 3.7. tolerating antibiotic well. Medicated for pain x3 over night. Pt. states is allergic to Reglan refused to take ordered doses. Pt. would like to take Solu-Zoraida if possible for Adrenal insufficiency. Bp too low for hydralazine IV will hold for now.
[2023-03-25] MEDS: normal saline 1000ml 1,000 ML IV SCH ×3 (00:15→20:15)
[2023-03-25] MEDS: metoclopramide 5 mg/ml inj IV SCH ×4 (02:00→20:00)
[2023-03-25 03:00] VITALS: BP 123/54
[2023-03-25] MEDS ORDERED: VANCOMYCIN LEVEL IV ONE (03:30)
[2023-03-25] MEDS: proCHLORperazine 10 MG/2 ml inj IV PRN ×2 (03:47→20:18)
[2023-03-25] MEDS: HYDROmorphone inj. 0.5 MG/0.5 ML DISP.SYRIN IV PRN ×4 (03:48→20:19)
[2023-03-25] MEDS: piperacillin/tazo 4.5gm/100ml 100 ML IV SCH ×3 (03:48→21:36)
[2023-03-25] MEDS: hydrALAZINE 20mg/ml inj. IV SCH ×6 (04:00→20:00)
[2023-03-25 04:46] LABS: BASOPHILS % (AUTO) 0.5 % (0-1); EOSINOPHILS # (AUTO) 0.6 X10'3 (0-0.9); HEMATOCRIT 29.8 % (35.0-45.0); HEMOGLOBIN 9.5 g/dl (12.0-16.0); LYMPHOCYTES # (AUTO) 0.6 X10'3 (1.1-4.8); LYMPHOCYTES % (AUTO) 6.6 % (21-51); MEAN CORPUSCULAR HEMOGLOBIN 27.7 PG (27.0-31.0); MEAN CORPUSCULAR VOLUME 86.5 FL (78-98); MONOCYTES # (AUTO) 0.7 X10'3 (0-0.9); MONOCYTES % (AUTO) 7.5 % (2-12); NEUTROPHILS # (AUTO) 7.4 X10'3 (1.8-7.7); NEUTROPHILS % (AUTO) 79.4 % (42-75); PLATELET COUNT 204 X10'3 (140-440); RED BLOOD COUNT 3.44 X10'6 (4.20-5.60); RED CELL DISTRIBUTION WIDTH 17.9 % (11.5-14.5); WHITE BLOOD COUNT 9.3 X10'3 (4.5-11.0)
[2023-03-25 04:58] LABS: ALANINE AMINOTRANSFERASE 12 U/L (12-78); ALBUMIN 1.7 G/DL (3.4-5.0); ALBUMIN/GLOBULIN RATIO 0.6 (1.1-1.5); ALKALINE PHOSPHATASE 67 IU/L (46-116); ANION GAP 4 (8-16); ASPARTATE AMINO TRANSFERASE 15 U/L (10-37); BILIRUBIN,TOTAL 0.5 MG/DL (0.1-1.0); BLOOD UREA NITROGEN 8 MG/DL (7-18); BUN/CREATININE RATIO 22.2 (10.0-20.0); CHLORIDE 106 MMOL/L (99-107); CREATININE 0.36 MG/DL (0.40-0.90); GLUCOSE 70 MG/DL (70-104); POTASSIUM 3.7 MMOL/L (3.5-5.1); SODIUM 138 MMOL/L (135-145); TOTAL CARBON DIOXIDE 27.6 MMOL/L (24-32); TOTAL PROTEIN 4.7 G/DL (6.4-8.2); VANCOMYCIN,TROUGH 5.9 UG/ML (6.0-14.0); eGFR > 90 ML/MIN
[2023-03-25] MEDS: vancomycin/NS 1 GM ADD-VANTAGE 250 ML IV SCH (05:09)
[2023-03-25 06:30] VITALS: BP 133/61
[2023-03-25] MEDS: levoTHYROXINE 75mcg tablet PO SCH (08:00)
[2023-03-25] MEDS: K and/or MAG REPLACEMENT MC SCH ×2 (08:00→20:00)
[2023-03-25] MEDS: heparin, porcine 5000 units/ml vial SQ SCH ×2 (10:04→20:19)
[2023-03-25] MEDS: pantoprazole 40MG/NS 100ML BAG 100 ML IV SCH (10:08)
[2023-03-25] MEDS: dorzolamide 2% ophthalmic drops 10ml EACHEYE SCH ×2 (10:25→21:37)
[2023-03-25] MEDS: timolol 0.5% ophthalmic solution 5ml bottle EACHEYE SCH (10:25)
[2023-03-25 10:30] VITALS: BP 108/45
--- NOTE | 2023-03-25 10:59 | NUR ---
Initial: Pt presented with c/o bright red blood in stool and admit or perforated abdominal viscus. Pt currently POD # 3 s/p exploratory laparotomy, sigmoid colectomy, and creation of colostomy. 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 Pt has been NPO and with an NGT in place, documented with 200 mL output 03/24 per I&O. Pt with a BM 03/24 per I&O though unsure of accuracy as no documented quantity of stool output and pt documented with hypoactive bowel sounds. Routine Reglan is available however pt refusing d/t reported allergy per RN note. Recommend initiating PN if unable to advance PO diet in the next few days with prolonged return of bowel function. Will continue to follow closely. Recommendations: 1) Advance to low fiber diet as medically indicated 2) Initiate PN if unable to advance PO diet with continued prolonged return of bowel function 3) Bowel care per physician 4) Scaled weight this admit; subsequent weekly scaled weights 5) Colostomy nutrition therapy education as appropriate Addendum: 03/25/23 at [address] Amended: Links added.
--- NOTE | 2023-03-25 11:26 | NUR ---
Paged Message: [phone]. Lisandro. Pt requesting to be started on her steroids. Triston in room. Thanks, Xuan [phone] Transaction number: [id number]
--- NOTE | 2023-03-25 12:34 | NUR ---
Orders entered for Dr Pimentel: clamp NG tube for 4 hrs, if output less than 150cc, ok to d/c NG. Asked about diet, no addtil diet order for now, continue to keep NPO. Also, got order for solu-cortef 100mg Q6H IVP.
[2023-03-25 14:30] VITALS: BP 140/58
[2023-03-25] MEDS: hydrocortisone sod succ/PF 100mg/2ml inj. IV SCH ×2 (14:58→20:19)
--- NOTE | 2023-03-25 16:38 | NUR ---
d/c'd NG tube per MD Pimentel orders, had clamped for 4 hours then cont suction and 75cc's came out, much of that was residual in the tubing.
--- NOTE | 2023-03-25 18:30 | NUR ---
[place] Medication Administration: For this medication-pass time frame, all medication were reviewed, dispensed, administered and documented per hospital policy by DEXTER Goss.
--- NOTE | 2023-03-25 18:37 | NUR ---
Problems reprioritized. Patient report given, questions answered & plan of care reviewed with Loren, RN.
[2023-03-25 20:28] VITALS: BP 124/47
[2023-03-25 22:00] VITALS: BP 107/71
--- NOTE | 2023-03-26 00:08 | NUR ---
Pt. is drowsy but arousable. NGT out pt. states feels much better able to feed self ice chips only. Still c/o pain and discomfort medicated as needed. Abd dressing intact. Colostomy bag/ Farias pouch intact. Small amt serorsang drainage. ADITYA drain with small amt serosang drainage. Arce with yellow clear urine. pt. able to move around in bed in small increments. IV NS infusing well. Niece at bedside visiting earlier. Plan for PT OT activity tomorrow.
--- NOTE | 2023-03-26 00:27 | NUR ---
Page Sent promotional table spacer PAGER ID: [phone] MESSAGE: This is for PtLina Mcmahon PCU 2013A She had surgery POD #3 for Perf Bowel/ Resection tumor removal. Dr Summers is hospitalist . Glucose levels are decreasing everyday 152/90 today 70 ok to switch IV to D5 NS 100 ml from NS? (223 character message out of a maximum of 240)
[2023-03-26] MEDS: dextrose 5%-normal saline 1,000 ML IV SCH ×2 (01:13→12:00)
[2023-03-26] MEDS: hydrocortisone sod succ/PF 100mg/2ml inj. IV SCH ×3 (01:40→16:26)
[2023-03-26] MEDS: HYDROmorphone inj. 0.5 MG/0.5 ML DISP.SYRIN IV PRN ×5 (01:41→20:50)
[2023-03-26] MEDS: fentaNYL 75 MCG/hour patch.TD72 TD SCH (01:47)
[2023-03-26] MEDS: metoclopramide 5 mg/ml inj IV SCH ×4 (02:00→20:47)
[2023-03-26 03:00] VITALS: BP 106/45
[2023-03-26] MEDS ORDERED: VANCOMYCIN 1,500MG in normal saline IV soln 300 ML IV SCH ×2 (04:00→10:00)
[2023-03-26] MEDS: hydrALAZINE 20mg/ml inj. IV SCH ×6 (04:00→20:44)
[2023-03-26] MEDS: piperacillin/tazo 4.5gm/100ml 100 ML IV SCH ×3 (05:53→20:40)
[2023-03-26] MEDS: proCHLORperazine 10 MG/2 ml inj IV PRN (05:54)
--- NOTE | 2023-03-26 06:00 | NUR ---
Peripheral IV infusing slowly. Will need new line for Vancomycin asked pharmacy to retime to 10 am when new line available. Addendum: 03/26/23 at 0643 by Heather Camacho RN Peripheral IV infusing slowly. Will need new line for Vancomycin asked pharmacy to retime to 10 am when new line available. Dayshift to start new IV as needed.
--- NOTE | 2023-03-26 06:27 | NUR ---
Problems reprioritized. Patient report given, questions answered & plan of care reviewed with Loren RENTERIA. Addendum: 03/26/23 at 1854 by Amelia Coleman LVN, LVN DEXTER Valdes
[2023-03-26 06:30] VITALS: BP 134/60
[2023-03-26] MEDS: pantoprazole 40MG/NS 100ML BAG 100 ML IV SCH (07:51)
[2023-03-26] MEDS: dorzolamide 2% ophthalmic drops 10ml EACHEYE SCH ×2 (08:00→20:40)
[2023-03-26] MEDS: timolol 0.5% ophthalmic solution 5ml bottle EACHEYE SCH (08:00)
[2023-03-26] MEDS: K and/or MAG REPLACEMENT MC SCH ×2 (08:00→20:00)
[2023-03-26] MEDS: levoTHYROXINE 75mcg tablet PO SCH (09:22)
[2023-03-26] MEDS: heparin, porcine 5000 units/ml vial SQ SCH ×2 (09:25→20:45)
[2023-03-26] MEDS: ondansetron/PF 4mg/2ml inj IV PRN (10:57)
[2023-03-26 15:26] VITALS: BP 117/50
[2023-03-26 18:00] VITALS: BP 107/45
--- NOTE | 2023-03-26 18:00 | NUR ---
Patient in room PCU 3013. I have received report from Amelia TRUJILLO and had the opportunity to ask questions and assume patient care.
[2023-03-26 19:30] LABS: ALBUMIN 1.9 G/DL (3.4-5.0); ANION GAP 9 (8-16); BASOPHILS % (AUTO) 0.1 % (0-1); BLOOD UREA NITROGEN 14 MG/DL (7-18); BUN/CREATININE RATIO 28.6 (10.0-20.0); CALCIUM 8.7 MG/DL (8.5-10.1); CHLORIDE 104 MMOL/L (99-107); CREATININE 0.49 MG/DL (0.40-0.90); EOSINOPHILS % (AUTO) 0 % (0-6); GLUCOSE 140 MG/DL (70-104); HEMATOCRIT 33.7 % (35.0-45.0); LYMPHOCYTES # (AUTO) 0.4 X10'3 (1.1-4.8); LYMPHOCYTES % (AUTO) 3.5 % (21-51); MEAN CORPUSCULAR HEMOGLOBIN 27.7 PG (27.0-31.0); MEAN CORPUSCULAR HGB CONC 32.6 g/dL (33.0-36.5); MEAN PLATELET VOLUME 7.9 FL (7.4-10.4); MONOCYTES # (AUTO) 0.5 X10'3 (0-0.9); MONOCYTES % (AUTO) 3.7 % (2-12); NEUTROPHILS # (AUTO) 11.3 X10'3 (1.8-7.7); NEUTROPHILS % (AUTO) 92.7 % (42-75); PLATELET COUNT 297 X10'3 (140-440); POTASSIUM 3.4 MMOL/L (3.5-5.1); RED BLOOD COUNT 3.97 X10'6 (4.20-5.60); RED CELL DISTRIBUTION WIDTH 17.8 % (11.5-14.5); SODIUM 140 MMOL/L (135-145); TOTAL CARBON DIOXIDE 27.2 MMOL/L (24-32); WHITE BLOOD COUNT 12.2 X10'3 (4.5-11.0); eGFR > 90 ML/MIN
[2023-03-26 20:48] VITALS: BP 122/58
[2023-03-26 22:00] VITALS: BP 112/47
[2023-03-27] MEDS: dextrose 5%-normal saline 1,000 ML IV SCH (00:10)
[2023-03-27] MEDS: hydrALAZINE 20mg/ml inj. IV SCH ×6 (00:11→20:09)
--- NOTE | 2023-03-27 01:01 | NUR ---
received patient. patient stable. patient slept well throughout the night. patient was refusing to be turned. states she is in to much pain.
[2023-03-27] MEDS: potassium Cl 40MEQ/1/2NS 520ml 520 ML IV PRN (02:11)
[2023-03-27] MEDS: metoclopramide 5 mg/ml inj IV SCH ×4 (02:12→19:50)
[2023-03-27] MEDS: hydrocortisone sod succ/PF 100mg/2ml inj. IV SCH ×3 (02:12→19:49)
[2023-03-27 03:15] VITALS: BP 104/43
[2023-03-27] MEDS: piperacillin/tazo 4.5gm/100ml 100 ML IV SCH ×3 (04:25→19:48)
[2023-03-27] MEDS: HYDROmorphone inj. 0.5 MG/0.5 ML DISP.SYRIN IV PRN ×3 (04:25→19:50)
[2023-03-27 06:30] VITALS: BP 114/58
--- NOTE | 2023-03-27 06:44 | NUR ---
Patient in room PCU 3013. I have received report from Lyn RENTERIA and had the opportunity to ask questions and assume patient care.
[2023-03-27 07:22] LABS: BASOPHILS % (AUTO) 0.1 % (0-1); EOSINOPHILS % (AUTO) 0 % (0-6); HEMATOCRIT 36.3 % (35.0-45.0); HEMOGLOBIN 11.3 g/dl (12.0-16.0); LYMPHOCYTES # (AUTO) 0.5 X10'3 (1.1-4.8); LYMPHOCYTES % (AUTO) 3.9 % (21-51); MEAN CORPUSCULAR HEMOGLOBIN 27.3 PG (27.0-31.0); MEAN CORPUSCULAR HGB CONC 31.2 g/dL (33.0-36.5); MEAN CORPUSCULAR VOLUME 87.6 FL (78-98); MEAN PLATELET VOLUME 7.9 FL (7.4-10.4); MONOCYTES # (AUTO) 0.7 X10'3 (0-0.9); MONOCYTES % (AUTO) 5.4 % (2-12); NEUTROPHILS # (AUTO) 12.5 X10'3 (1.8-7.7); NEUTROPHILS % (AUTO) 90.6 % (42-75); PLATELET COUNT 248 X10'3 (140-440); RED BLOOD COUNT 4.15 X10'6 (4.20-5.60); RED CELL DISTRIBUTION WIDTH 18.5 % (11.5-14.5); WHITE BLOOD COUNT 13.8 X10'3 (4.5-11.0)
[2023-03-27 07:51] LABS: ALANINE AMINOTRANSFERASE 15 U/L (12-78); ALBUMIN/GLOBULIN RATIO 0.6 (1.1-1.5); ALKALINE PHOSPHATASE 68 IU/L (46-116); ANION GAP 7 (8-16); ASPARTATE AMINO TRANSFERASE 19 U/L (10-37); BILIRUBIN,TOTAL 0.3 MG/DL (0.1-1.0); BLOOD UREA NITROGEN 17 MG/DL (7-18); CALCIUM 8.9 MG/DL (8.5-10.1); CHLORIDE 106 MMOL/L (99-107); CREATININE 0.46 MG/DL (0.40-0.90); GLUCOSE 154 MG/DL (70-104); PHOSPHORUS 2.8 MG/DL (2.3-4.5); POTASSIUM 3.9 MMOL/L (3.5-5.1); SODIUM 139 MMOL/L (135-145); TOTAL CARBON DIOXIDE 25.6 MMOL/L (24-32); TOTAL PROTEIN 5.1 G/DL (6.4-8.2); eGFR > 90 ML/MIN
[2023-03-27] MEDS: K and/or MAG REPLACEMENT MC SCH ×2 (08:00→20:00)
[2023-03-27] MEDS: pantoprazole 40MG/NS 100ML BAG 100 ML IV SCH (08:28)
[2023-03-27] MEDS: dorzolamide 2% ophthalmic drops 10ml EACHEYE SCH ×2 (09:03→19:48)
[2023-03-27] MEDS: levoTHYROXINE 75mcg tablet PO SCH (09:03)
[2023-03-27] MEDS: heparin, porcine 5000 units/ml vial SQ SCH ×2 (09:04→19:58)
[2023-03-27] MEDS: timolol 0.5% ophthalmic solution 5ml bottle EACHEYE SCH (09:04)
[2023-03-27 11:00] VITALS: BP 132/51
--- NOTE | 2023-03-27 14:00 | NUR ---
Colostomy appliance and surgical dressing changed by WOC.
--- NOTE | 2023-03-27 14:36 | NUR ---
PRESSURE ULCER EDUCATION: DEFINITION: A pressure ulcer is an area of skin that breaks down when you stay in one position too long. The constant pressure against the skin reduces the blood flow to that area and the affected tissue dies. CAUSES: "Being bedridden or in a wheelchair "Fragile skin "Having a chronic condition, such as diabetes or vascular disease "Inability to move certain parts of your body without assistance "Older age "Incontinence of urine or stool SYMPTOMS: "A reddened area that DOES NOT turn white when pressed on - this can be the beginning of a pressure ulcer "A blister, deep sore or a crater - these can be advanced pressure ulcers FIRST AID: "Relieve the pressure on this area "Keep the area clean and dry "Call your primary doctor if you see any of the above symptoms "DO NOT massage the area "DO NOT use a donut shaped or ring shaped pillow- these actually interfere with the blood flow and cause complications PREVENTION: "Check for pressure ulcers everyday "Change position at least every two hours to relieve pressure "Use items that help relieve pressure- pillows, sheepskin, foam padding, and powders. "Keep skin clean and dry "Eat healthy well balanced meals "Exercise daily IF YOU SEE ANY OF THESE SYMPTOMS WHILE IN THE HOSPITAL - TELL YOUR NURSE IMMEDIATELY. IF YOU SEE ANY OF THESE SYMPTOMS WHILE AT HOME OR HAVE ANY QUESTIONS OR CONCERNS ABOUT PRESSURE ULCERS - CALL YOUR PRIMARY DOCTOR IMMEDIATELY. Addendum: 03/27/23 at 1437 by Galilea Srinivasan LVN Amended: Links added.
[2023-03-27 15:00] VITALS: BP 124/60
--- NOTE | 2023-03-27 16:34 | NUR ---
I AGREE WITH PAWN SHOP KEEPER ASSESSMENT
--- NOTE | 2023-03-27 18:14 | NUR ---
Problems reprioritized. Patient report given, questions answered & plan of care reviewed with Lyn RENTERIA.
[2023-03-27 20:26] VITALS: BP 118/56
[2023-03-28] VITALS (7 sets, daily range): BP systolic 114–128; BP diastolic 48–59
[2023-03-28] MEDS: dextrose 5%-normal saline 1,000 ML IV SCH (03:04)
[2023-03-28] MEDS: piperacillin/tazo 4.5gm/100ml 100 ML IV SCH ×3 (03:06→20:30)
[2023-03-28] MEDS: metoclopramide 5 mg/ml inj IV SCH ×5 (03:07→23:48)
[2023-03-28] MEDS: hydrALAZINE 20mg/ml inj. IV SCH ×4 (03:09→12:00)
[2023-03-28] MEDS: HYDROmorphone inj. 0.5 MG/0.5 ML DISP.SYRIN IV PRN ×2 (05:34→11:37)
--- NOTE | 2023-03-28 06:45 | NUR ---
Patient in room PCU 3013A. I have received report from DEXTER SARAH and had the opportunity to ask questions and assume patient care.
[2023-03-28 07:05] LABS: EOSINOPHILS % (AUTO) 0.1 % (0-6); HEMOGLOBIN 10.1 g/dl (12.0-16.0); LYMPHOCYTES # (AUTO) 0.7 X10'3 (1.1-4.8); MEAN CORPUSCULAR HGB CONC 32.2 g/dL (33.0-36.5)
[2023-03-28 07:07] LABS: BASOPHILS % (AUTO) 0.2 % (0-1); HEMATOCRIT 31.2 % (35.0-45.0); LYMPHOCYTES % (AUTO) 5.6 % (21-51); MEAN CORPUSCULAR HEMOGLOBIN 27.2 PG (27.0-31.0); MEAN CORPUSCULAR VOLUME 84.5 FL (78-98); MONOCYTES # (AUTO) 0.6 X10'3 (0-0.9); MONOCYTES % (AUTO) 4.8 % (2-12); NEUTROPHILS # (AUTO) 11.8 X10'3 (1.8-7.7); NEUTROPHILS % (AUTO) 89.3 % (42-75); PLATELET COUNT 308 X10'3 (140-440); RED CELL DISTRIBUTION WIDTH 17.8 % (11.5-14.5); WHITE BLOOD COUNT 13.2 X10'3 (4.5-11.0)
[2023-03-28 07:39] LABS: ALANINE AMINOTRANSFERASE 16 U/L (12-78); ALBUMIN 1.9 G/DL (3.4-5.0); ALBUMIN/GLOBULIN RATIO 0.7 (1.1-1.5); ALKALINE PHOSPHATASE 59 IU/L (46-116); ANION GAP 2 (8-16); ASPARTATE AMINO TRANSFERASE 15 U/L (10-37); BILIRUBIN,TOTAL 0.3 MG/DL (0.1-1.0); BLOOD UREA NITROGEN 14 MG/DL (7-18); BUN/CREATININE RATIO 31.1 (10.0-20.0); CALCIUM 8.6 MG/DL (8.5-10.1); CHLORIDE 108 MMOL/L (99-107); CREATININE 0.45 MG/DL (0.40-0.90); GLUCOSE 136 MG/DL (70-104); PHOSPHORUS 2.2 MG/DL (2.3-4.5); POTASSIUM 3.6 MMOL/L (3.5-5.1); SODIUM 140 MMOL/L (135-145); TOTAL CARBON DIOXIDE 29.7 MMOL/L (24-32); TOTAL PROTEIN 4.7 G/DL (6.4-8.2); eGFR > 90 ML/MIN
[2023-03-28] MEDS: K and/or MAG REPLACEMENT MC SCH ×2 (08:00→20:00)
[2023-03-28] MEDS ORDERED: hydrocortisone sod succ/PF 100mg/2ml inj. IV SCH (10:41)
[2023-03-28] MEDS: pantoprazole 40MG/NS 100ML BAG 100 ML IV SCH (11:18)
[2023-03-28] MEDS: hydrocortisone sod succ/PF 100mg/2ml inj. IV SCH (11:19)
[2023-03-28] MEDS: heparin, porcine 5000 units/ml vial SQ SCH ×2 (11:43→20:30)
[2023-03-28] MEDS: dorzolamide 2% ophthalmic drops 10ml EACHEYE SCH ×2 (11:48→20:30)
[2023-03-28] MEDS: levoTHYROXINE 75mcg tablet PO SCH (11:49)
[2023-03-28] MEDS: timolol 0.5% ophthalmic solution 5ml bottle EACHEYE SCH (12:24)
[2023-03-28] MEDS: normal saline 1000ml 1,000 ML IV SCH (12:30)
--- NOTE | 2023-03-28 13:42 | NUR ---
Wound care in to see patient for more ostomy teaching and signature for [employer] materials0 form. The pt. was found sitting up in bed in no apparent acute distress. Greeted and asked about her current condition. The patient feels she is doing worse today. She states that yesterday she was able to get up and seemed to have less pain. She was asked if she was able to review some yu points concerning her new colostomy and to sign the [employer] form for which she declined. She also stated that she is unable to move given the history of her back and now her ABD incision and colostomy. Spoke with the nurse and she states that the pt. moves very little and will often decline repositioning. Recommendation to hospitalist for specialty bed for pressure injury prevention measures. Education reinforced concerning pressure injury prevention.
[2023-03-28] MEDS: HYDROcodone/acetaminophen 10/325mg tab PO PRN ×2 (15:28→20:48)
--- NOTE | 2023-03-28 18:00 | NUR ---
Patient in room PCU 3013A. I have received report from Tahmina RENTERIA and had the opportunity to ask questions and assume patient care.
--- NOTE | 2023-03-28 19:22 | NUR ---
Problems reprioritized. Patient report given, questions answered & plan of care reviewed with DEXTER SARAH.
[2023-03-29] VITALS (7 sets, daily range): BP systolic 126–149; BP diastolic 58–74
[2023-03-29] MEDS: fentaNYL 75 MCG/hour patch.TD72 TD SCH (00:39)
--- NOTE | 2023-03-29 01:26 | NUR ---
spoke with patient several times stating she has to really try and do task on her own. she has been trying more. put fentyl patch on right upper arm. will put patient in speciality bed at some point during the night.
[2023-03-29] MEDS: piperacillin/tazo 4.5gm/100ml 100 ML IV SCH ×3 (02:51→20:28)
[2023-03-29] MEDS: HYDROcodone/acetaminophen 10/325mg tab PO PRN ×4 (02:51→20:16)
--- NOTE | 2023-03-29 06:15 | NUR ---
Patient in room PCU 3013. I have received report from Sam RENTERIA and had the opportunity to ask questions and assume patient care.
[2023-03-29] MEDS: normal saline 1000ml 1,000 ML IV SCH ×2 (06:54→18:03)
[2023-03-29] MEDS: hydrALAZINE 20mg/ml inj. IV SCH ×4 (07:43→20:27)
[2023-03-29] MEDS: pantoprazole 40MG/NS 100ML BAG 100 ML IV SCH (07:43)
[2023-03-29] MEDS: metoclopramide 5 mg/ml inj IV SCH (07:51)
[2023-03-29] MEDS: dorzolamide 2% ophthalmic drops 10ml EACHEYE SCH ×2 (07:57→20:16)
[2023-03-29] MEDS: levoTHYROXINE 75mcg tablet PO SCH (07:57)
[2023-03-29] MEDS: timolol 0.5% ophthalmic solution 5ml bottle EACHEYE SCH (07:57)
[2023-03-29] MEDS: heparin, porcine 5000 units/ml vial SQ SCH ×2 (07:58→20:16)
[2023-03-29] MEDS ORDERED: hydrocortisone sod succ/PF 100mg/2ml inj. IV SCH (08:00)
[2023-03-29] MEDS: K and/or MAG REPLACEMENT MC SCH ×2 (08:00→20:00)
[2023-03-29] MEDS ORDERED: VANCOMYCIN LEVEL IV ONE (09:30)
[2023-03-29 10:25] LABS: BASOPHILS % (AUTO) 0.4 % (0-1); EOSINOPHILS # (AUTO) 0.1 X10'3 (0-0.9); EOSINOPHILS % (AUTO) 1.2 % (0-6); HEMATOCRIT 34.4 % (35.0-45.0); HEMOGLOBIN 11.2 g/dl (12.0-16.0); LYMPHOCYTES % (AUTO) 8.6 % (21-51); MEAN CORPUSCULAR HEMOGLOBIN 27.7 PG (27.0-31.0); MEAN CORPUSCULAR HGB CONC 32.6 g/dL (33.0-36.5); MEAN CORPUSCULAR VOLUME 85.1 FL (78-98); MEAN PLATELET VOLUME 7.5 FL (7.4-10.4); MONOCYTES % (AUTO) 8.7 % (2-12); NEUTROPHILS # (AUTO) 9.2 X10'3 (1.8-7.7); NEUTROPHILS % (AUTO) 81.1 % (42-75); PLATELET COUNT 338 X10'3 (140-440); RED BLOOD COUNT 4.04 X10'6 (4.20-5.60); RED CELL DISTRIBUTION WIDTH 18.2 % (11.5-14.5); WHITE BLOOD COUNT 11.4 X10'3 (4.5-11.0)
[2023-03-29 10:42] LABS: ALANINE AMINOTRANSFERASE 14 U/L (12-78); ALBUMIN 1.9 G/DL (3.4-5.0); ALBUMIN/GLOBULIN RATIO 0.7 (1.1-1.5); ALKALINE PHOSPHATASE 66 IU/L (46-116); ANION GAP 5 (8-16); BILIRUBIN,TOTAL 0.3 MG/DL (0.1-1.0); BLOOD UREA NITROGEN 10 MG/DL (7-18); BUN/CREATININE RATIO 17.5 (10.0-20.0); CALCIUM 8.4 MG/DL (8.5-10.1); CHLORIDE 109 MMOL/L (99-107); CREATININE 0.57 MG/DL (0.40-0.90); GLUCOSE 96 MG/DL (70-104); MAGNESIUM 1.8 MG/DL (1.5-2.4); SODIUM 143 MMOL/L (135-145); TOTAL CARBON DIOXIDE 29.1 MMOL/L (24-32); TOTAL PROTEIN 4.7 G/DL (6.4-8.2); TRIGLYCERIDES 110 MG/DL (20-135); eGFR > 90 ML/MIN
[2023-03-29 10:43] LABS: ASPARTATE AMINO TRANSFERASE 25 U/L (10-37); PHOSPHORUS 1.5 MG/DL (2.3-4.5); POTASSIUM 3.5 MMOL/L (3.5-5.1)
[2023-03-29 10:57] LABS: TOTAL CELLS COUNTED 100
[2023-03-29 11:02] LABS: ANISOCYTOSIS 2+; PLATELET ESTIMATE NORMAL; POIKILOCYTOSIS 2+
[2023-03-29] MEDS ORDERED: potassium phosphate inj 30 MMOL in normal saline 250ml IV soln 250 ML IV ONE (11:15)
[2023-03-29] MEDS: predniSONE 5mg tablet PO SCH (16:21)
--- NOTE | 2023-03-29 16:51 | NUR ---
Reassessment: Patient's diet was advanced to clear liquids 03/27. D/w physician recommendation for nutrition support if diet is unable to be advanced to at least full liquids as pt is now day 9 with little to no nutrition. Per verbal d/w bedside RN the surgeon cleared patient for diet advancement to regular. D/w RN recommendation for diet advancement to low fiber given colectomy and colostomy this admit. Diet advancement order still pending at this time. Per EMR LBM 03/20. RN states pt is passing gas but still with no stool output since GI surgery, however pt states she feels like she will have a BM. Per RN routine Reglan to be discontinued given reported allergy. Recommend implementing bowel care per surgeon/physician discretion. Pt now meets criteria for severe malnutrition given no significant nutrition for 9 days, trace edema, and mild muscle weakness. Will continue to follow closely and make recommendations as appropriate. Recommendations: 1) Advance to low fiber diet as medically indicated 2) Initiate PN if unable to advance PO diet with continued prolonged return of bowel function 3) Bowel care per physician 4) Weekly scaled weights 5) Colostomy nutrition therapy education as appropriate Addendum: 03/29/23 at [address] Amended: Links added.
--- NOTE | 2023-03-29 17:51 | NUR ---
ALARM SIGNAL OPERATOR documentation: I have reviewed and agree with all interventions, assessments performed and documented by DARCI MOORE LVN.
--- NOTE | 2023-03-29 17:59 | NUR ---
F/u: Patient's diet has appropriately been advanced to low fiber. Pt seen at bedside with niece present for written and verbal colostomy nutrition therapy education. Pt reports UBW 165-170 lbs, last weighing that summer 2021 and reports 40 lb wt loss d/t poor PO intake secondary to hernia. Pt states most of her nutrition came from [employer]. Current bed scaled wt is 180 lbs, though likely pt did experience wt loss given poor PO intake during admit and PUBLIC FINANCE SPECIALIST. Pt with visible severe decrease in muscle strength, further confirming malnutrition status. Pt provided with ONS coupons and RD discussed ways to increase nutrient intake within current dietary limitations. All of patient's/niece's questions were answered at this time. RD contact provided and both pt/niece encouraged to reach out if needed. Pt agrees to soft to chew ground food to begin at breakfast tomorrow d/t weakness and prolonged NPO/liquid diet status, d/w dietary. Pt also requests no acidic or spicy food, d/w dietary. Pt would like Ensure during admit, ONS to be sent pending physician approval in EMR. Niece encouraged to bring in [employer] if able to in the mean time. Will continue to follow closely. Recommendations: 1) Continue low fiber diet 2) Mentcle food preferences: soft to chew grind all; no acidic or spicy food 3) Imogene Ensure Enlive TID, pending physician approval in EMR; allow [employer] from home pending physician approval of Ensure 4) Initiate nutrition support if pt unable to tolerate diet advancement 5) Bowel care per physician 6) Weekly scaled weights Addendum: 03/29/23 at [address] Amended: Links added.
--- NOTE | 2023-03-29 20:30 | NUR ---
LINUX VMWARE ADMINISTRATOR documentation: I have reviewed and agree with all interventions, assessments performed and documented by .
--- NOTE | 2023-03-29 21:00 | NUR ---
WARP KNIT OPERATOR documentation: I have reviewed and agree with all interventions, assessments performed and documented by Emily duenas LVN.
[2023-03-30] VITALS (7 sets, daily range): BP systolic 93–141; BP diastolic 40–69
[2023-03-30] MEDS: HYDROcodone/acetaminophen 10/325mg tab PO PRN ×4 (00:47→23:55)
[2023-03-30] MEDS: hydrALAZINE 20mg/ml inj. IV SCH ×6 (00:51→21:27)
--- NOTE | 2023-03-30 03:11 | NUR ---
gave report to Jolene RENTERIA
[2023-03-30] MEDS: piperacillin/tazo 4.5gm/100ml 100 ML IV SCH ×3 (03:14→21:28)
[2023-03-30] MEDS: ondansetron/PF 4mg/2ml inj IV PRN (04:32)
[2023-03-30 07:18] LABS: ALANINE AMINOTRANSFERASE 14 U/L (12-78); ALBUMIN 1.9 G/DL (3.4-5.0); ALBUMIN/GLOBULIN RATIO 0.8 (1.1-1.5); ALKALINE PHOSPHATASE 62 IU/L (46-116); ANION GAP 2 (8-16); ASPARTATE AMINO TRANSFERASE 16 U/L (10-37); BASOPHILS % (AUTO) 0.2 % (0-1); BILIRUBIN,TOTAL 0.4 MG/DL (0.1-1.0); BLOOD UREA NITROGEN 6 MG/DL (7-18); CALCIUM 7.8 MG/DL (8.5-10.1); CHLORIDE 106 MMOL/L (99-107); CREATININE 0.46 MG/DL (0.40-0.90); EOSINOPHILS # (AUTO) 0.4 X10'3 (0-0.9); EOSINOPHILS % (AUTO) 3.3 % (0-6); GLUCOSE 83 MG/DL (70-104); HEMOGLOBIN 10.6 g/dl (12.0-16.0); LYMPHOCYTES # (AUTO) 1.2 X10'3 (1.1-4.8); LYMPHOCYTES % (AUTO) 11.4 % (21-51); MAGNESIUM 1.7 MG/DL (1.5-2.4); MEAN CORPUSCULAR HEMOGLOBIN 28.1 PG (27.0-31.0); MEAN CORPUSCULAR HGB CONC 33.2 g/dL (33.0-36.5); MEAN CORPUSCULAR VOLUME 84.4 FL (78-98); MEAN PLATELET VOLUME 7.8 FL (7.4-10.4); MONOCYTES # (AUTO) 0.9 X10'3 (0-0.9); MONOCYTES % (AUTO) 8.3 % (2-12); NEUTROPHILS # (AUTO) 8.3 X10'3 (1.8-7.7); NEUTROPHILS % (AUTO) 76.8 % (42-75); PHOSPHORUS 3.1 MG/DL (2.3-4.5); PLATELET COUNT 317 X10'3 (140-440); RED BLOOD COUNT 3.79 X10'6 (4.20-5.60); RED CELL DISTRIBUTION WIDTH 17.9 % (11.5-14.5); SODIUM 142 MMOL/L (135-145); TOTAL CARBON DIOXIDE 33.6 MMOL/L (24-32); TOTAL PROTEIN 4.3 G/DL (6.4-8.2); WHITE BLOOD COUNT 10.8 X10'3 (4.5-11.0); eGFR > 90 ML/MIN
[2023-03-30 07:23] LABS: POTASSIUM 2.8 MMOL/L (3.5-5.1)
--- NOTE | 2023-03-30 07:49 | NUR ---
Message: FOR DR. VERN Almodovar [id number] CRITICAL K 2.8. NO REPLACEMENT ORDERS NOTED. GONZALEZ [phone]
[2023-03-30] MEDS: heparin, porcine 5000 units/ml vial SQ SCH ×2 (08:00→20:44)
[2023-03-30] MEDS: timolol 0.5% ophthalmic solution 5ml bottle EACHEYE SCH (08:00)
[2023-03-30] MEDS: dorzolamide 2% ophthalmic drops 10ml EACHEYE SCH ×2 (08:00→20:44)
[2023-03-30] MEDS: pantoprazole 40MG/NS 100ML BAG 100 ML IV SCH (08:00)
[2023-03-30] MEDS ORDERED: hydrocortisone sod succ/PF 100mg/2ml inj. IV SCH (08:00)
[2023-03-30] MEDS: K and/or MAG REPLACEMENT MC SCH ×2 (08:00→20:00)
[2023-03-30] MEDS: levoTHYROXINE 75mcg tablet PO SCH (08:00)
[2023-03-30] MEDS: predniSONE 5mg tablet PO SCH (08:30)
[2023-03-30] MEDS ORDERED: magnesium Cl slow-release 64mg tablet PO PRN (08:45)
[2023-03-30] MEDS ORDERED: magnesium 2GM in 50ml NS 50 ML IV PRN (08:45)
[2023-03-30] MEDS ORDERED: magnesium 4gm in 100ml NS 100 ML IV PRN (08:45)
[2023-03-30] MEDS ORDERED: potassium Cl 40MEQ/1/2NS 520ml 520 ML IV PRN (08:45)
[2023-03-30] MEDS ORDERED: potassium Cl 20 mEq SR tablet PO PRN (08:45)
--- NOTE | 2023-03-30 10:00 | NUR ---
Pt's dressing peeled back for assessment. 2 jonathon missing. Surgical incision dehisced. Per wound care 0.8mm depth, 1mm wide. Surgeon Loren paged. Page return. made aware- made pt. NPO ordered CT contrast no contrast. CM aware.
[2023-03-30] MEDS ORDERED: [UNRECOGNIZED DRUG - OTHER] IV ONE (12:20)
[2023-03-30] MEDS ORDERED: potassium Cl 40MEQ/1/2NS 520ml 520 ML IV ONE (12:20)
[2023-03-30] MEDS ORDERED: POTASSIUM CL IV ONE (12:20)
--- NOTE | 2023-03-30 13:00 | NUR ---
SUrgeon rounding on floor. He looked at incision. Pt. requesting Flexeril for R shoulder. MD child. Pt states nausea from earlier on. Surgeon agreed to continue with no contrast CT. Plans for pt. to go to [facility] later.
--- NOTE | 2023-03-30 13:04 | NUR ---
for Dr. Isidra Britt 3013A Pt. requesting Flexeril for R shoulder discomfort. wound dehisced. Surgeon aware. CM aware. CT no contrast ordered. Postpone transfer to [facility] until pt safe to go. Gloria [phone]
[2023-03-30] MEDS: normal saline 1000ml 1,000 ML IV SCH (14:03)
--- NOTE | 2023-03-30 14:18 | NUR ---
Message: To Dr. Alexy Britt [phone] Pt start IV k replacement while NPO for CT scan. Bag wont be done until after 6. give PO k replacement to speed things up for transfer discharge? nauseous but meds ordered. How much? Gloria [phone]
[2023-03-30] MEDS: potassium Cl 20 mEq SR tablet PO PRN ×2 (14:47→16:48)
--- NOTE | 2023-03-30 15:20 | NUR ---
Surgeon aware of CT results.
--- NOTE | 2023-03-30 17:38 | NUR ---
Called report to Julieta TRUJILLO at [facility]
--- NOTE | 2023-03-30 18:15 | NUR ---
Patient in room PCU 3013. I have received report from josefa araujo and had the opportunity to ask questions and assume patient care.
--- NOTE | 2023-03-30 18:15 | NUR ---
Gave report to Sussy TRUJILLO
[2023-03-30] MEDS ORDERED: K and/or MAG REPLACEMENT MC SCH (20:00)
[2023-03-30] MEDS: HYDROmorphone inj. 0.5 MG/0.5 ML DISP.SYRIN IV PRN (21:28)
[2023-03-31] MEDS: hydrALAZINE 20mg/ml inj. IV SCH ×2 (00:14→03:50)
[2023-03-31 02:00] VITALS: BP 144/72
[2023-03-31] MEDS: piperacillin/tazo 4.5gm/100ml 100 ML IV SCH (03:50)
[2023-03-31] MEDS: HYDROmorphone inj. 0.5 MG/0.5 ML DISP.SYRIN IV PRN (03:51)
[2023-03-31 06:00] VITALS: BP 135/59
[2023-03-31] MEDS ORDERED: levoTHYROXINE 75mcg tablet PO SCH ×2 (07:00→07:01)
[2023-03-31] MEDS: HYDROcodone/acetaminophen 10/325mg tab PO PRN (07:05)
[2023-03-31 07:39] LABS: BASOPHILS % (AUTO) 0.4 % (0-1); EOSINOPHILS # (AUTO) 0.4 X10'3 (0-0.9); EOSINOPHILS % (AUTO) 3.6 % (0-6); HEMATOCRIT 32.7 % (35.0-45.0); HEMOGLOBIN 10.8 g/dl (12.0-16.0); LYMPHOCYTES # (AUTO) 1.3 X10'3 (1.1-4.8); MEAN CORPUSCULAR HEMOGLOBIN 27.5 PG (27.0-31.0); MEAN CORPUSCULAR VOLUME 83.2 FL (78-98); MEAN PLATELET VOLUME 7.8 FL (7.4-10.4); MONOCYTES # (AUTO) 0.8 X10'3 (0-0.9); MONOCYTES % (AUTO) 6.6 % (2-12); NEUTROPHILS # (AUTO) 9.1 X10'3 (1.8-7.7); NEUTROPHILS % (AUTO) 78.4 % (42-75); PLATELET COUNT 338 X10'3 (140-440); RED BLOOD COUNT 3.93 X10'6 (4.20-5.60); WHITE BLOOD COUNT 11.6 X10'3 (4.5-11.0)
[2023-03-31 07:52] LABS: ALANINE AMINOTRANSFERASE 17 U/L (12-78); ALBUMIN 1.9 G/DL (3.4-5.0); ALBUMIN/GLOBULIN RATIO 0.7 (1.1-1.5); ALKALINE PHOSPHATASE 66 IU/L (46-116); ANION GAP 4 (8-16); ASPARTATE AMINO TRANSFERASE 22 U/L (10-37); BILIRUBIN,TOTAL 0.4 MG/DL (0.1-1.0); BLOOD UREA NITROGEN 4 MG/DL (7-18); CALCIUM 8.1 MG/DL (8.5-10.1); CHLORIDE 105 MMOL/L (99-107); GLUCOSE 82 MG/DL (70-104); MAGNESIUM 1.8 MG/DL (1.5-2.4); PHOSPHORUS 3.2 MG/DL (2.3-4.5); SODIUM 141 MMOL/L (135-145); TOTAL CARBON DIOXIDE 32.1 MMOL/L (24-32); TOTAL PROTEIN 4.7 G/DL (6.4-8.2); eGFR > 90 ML/MIN
[2023-03-31 08:04] LABS: POTASSIUM 4.1 MMOL/L (3.5-5.1)
--- NOTE | 2023-03-31 08:20 | NUR ---
piv'S Addendum: 03/31/23 at 0900 by Xuan Marshall RN piv's x 2 removed - pt tolerated well. Tele box removed and returned to telegraph dispatcher
--- NOTE | 2023-03-31 10:15 | NUR ---
Pt. transfer to [facility] by smooth cargo per charger operator helper during primary RN break. Both PIVs removed. Pt. left with Murray drain and f/c per surgeon.
== END 2023-03-31 09:16 | DRG 853 ==
LOC: ER 12:56 → ED HOLD 20:19 → PCU 3S 23:40 → ICU 2S 03-22 01:36 → PCU 3S 03-23 15:46
PROVIDERS: ADMIT Family Medicine; ATTEND Internal Medicine
PROC: B4201ZZ Computerized Tomography (CT Scan) of Abdominal Aorta using Low Osmolar Contrast (ICD-10-PCS; 2023-03-20)
PROC: B4241ZZ Computerized Tomography (CT Scan) of Superior Mesenteric Artery using Low Osmolar Contrast (ICD-10-PCS; 2023-03-20)
PROC: B4281ZZ Computerized Tomography (CT Scan) of Bilateral Renal Arteries using Low Osmolar Contrast (ICD-10-PCS; 2023-03-20)
PROC: B42C1ZZ Computerized Tomography (CT Scan) of Pelvic Arteries using Low Osmolar Contrast (ICD-10-PCS; 2023-03-20)
PROC: B42H1ZZ Computerized Tomography (CT Scan) of Bilateral Lower Extremity Arteries using Low Osmolar Contrast (ICD-10-PCS; 2023-03-20)
PROC: B4211ZZ Computerized Tomography (CT Scan) of Celiac Artery using Low Osmolar Contrast (ICD-10-PCS; 2023-03-20)
PROC: BW211ZZ Computerized Tomography (CT Scan) of Abdomen and Pelvis using Low Osmolar Contrast (ICD-10-PCS; 2023-03-21)
PROC: 0D1M0Z4 Bypass Descending Colon to Cutaneous, Open Approach (ICD-10-PCS; principal; 2023-03-22)
PROC: 0DBN0ZZ Excision of Sigmoid Colon, Open Approach (ICD-10-PCS; 2023-03-22)
PROC: 0D9670Z Drainage of Stomach with Drainage Device, Via Natural or Artificial Opening (ICD-10-PCS; 2023-03-22)
PROC: 5A1935Z Respiratory Ventilation, Less than 24 Consecutive Hours (ICD-10-PCS; 2023-03-22)
PROC: 0BH17EZ Insertion of Endotracheal Airway into Trachea, Via Natural or Artificial Opening (ICD-10-PCS; 2023-03-22)
DX: A41.9 Sepsis, unspecified organism (principal); J96.00 Acute respiratory failure, unspecified whether with hypoxia or hypercapnia; K63.1 Perforation of intestine (nontraumatic); K65.9 Peritonitis, unspecified; E27.1 Primary adrenocortical insufficiency; E87.20 Acidosis, unspecified; D84.9 Immunodeficiency, unspecified; K63.89 Other specified diseases of intestine; K44.9 Diaphragmatic hernia without obstruction or gangrene; K21.9 Gastro-esophageal reflux disease without esophagitis; E03.9 Hypothyroidism, unspecified; D50.0 Iron deficiency anemia secondary to blood loss (chronic); E86.0 Dehydration; G89.4 Chronic pain syndrome; M19.09 Primary osteoarthritis, other specified site; E87.6 Hypokalemia; I10 Essential (primary) hypertension; K59.09 Other constipation; R82.4 Acetonuria; R01.1 Cardiac murmur, unspecified; Z79.52 Long term (current) use of systemic steroids; Z80.0 Family history of malignant neoplasm of digestive organs; Z82.49 Family history of ischemic heart disease and other diseases of the circulatory system; Z88.2 Allergy status to sulfonamides; Z90.710 Acquired absence of both cervix and uterus; Z88.8 Allergy status to other drugs, medicaments and biological substances; Z91.048 Other nonmedicinal substance allergy status; Z79.899 Other long term (current) drug therapy; Z79.890 Hormone replacement therapy
CPT/HCPCS: 36415; 36600; 71045; 74174; 74176; 80048; 80053; 80061; 80202; 81001; 82550; 82803; 82948; 83036; 83605; 83690; 83735; 83880; 84100; 84132; 84145; 84443; 84478; 84484; 85007; 85008; 85018; 85025; 85610; 85730; 86885; 86900; 86901; 87040; 87070; 87081; 88307; 93005; 94002; 94003; 94760; 96361; 96365; 96375; 97110; 97116; 97161; 97530; 97535; 99285; A4215; A4371; A4421; A4615; A4618; A4649; A6212; A6213; A6258; A6260; A6402; A6449; A7000; C1758; C9113; C9290; G0378; J0360; J0694; J0780; J1100; J1170; J1644; J1720; J2250; J2270; J2274; J2405; J2543; J2704; J2765; J2920; J3010; J3370; J3480; J3490; J7030; J7040; J7042; J7050; J7120; J7512; Q9963; Q9967